=== PATIENT | female | born 1935 | race Caucasian/White ===

== ENCOUNTER 2018-03-26 13:42 | Inpatient (IN) | payer OTHER ==
[~2018-03-26] VITALS: Ht 170.2 cm; Wt 69.9 kg
[~2018-03-26 13:42] MED LIST: ALTACE10 MG; DICLOFENAC SODI50 MG PO; DILTIAZEM 24HR240 MG; GLUCOTROL10 MG; JANUVIA100 MG; METFORMIN HCL750 MG; SYNTHROID88 MCG; ZOCOR20 MG
[2018-03-26] MEDS ORDERED: JANUVIA100 MG (14:11)
[2018-03-26] MEDS ORDERED: TUSSI-PRES LIQ118 ML (14:12)
== END 2018-03-30 16:41 | disposition home or self-care (01) | DRG 202 ==
LOC: ER 13:42 → SURH 21:32
PROC: 3E0F7GC Introduction of Other Therapeutic Substance into Respiratory Tract, Via Natural or Artificial Opening (ICD-10-PCS; principal; 2018-03-26)
PROC: 4A033R1 Measurement of Arterial Saturation, Peripheral, Percutaneous Approach (ICD-10-PCS; 2018-03-26)
DX: J45.41 Moderate persistent asthma with (acute) exacerbation (principal); J44.1 Chronic obstructive pulmonary disease with (acute) exacerbation; J44.0 Chronic obstructive pulmonary disease with (acute) lower respiratory infection; E11.65 Type 2 diabetes mellitus with hyperglycemia; I10 Essential (primary) hypertension; E03.8 Other specified hypothyroidism; E78.00 Pure hypercholesterolemia, unspecified; J20.9 Acute bronchitis, unspecified; B34.9 Viral infection, unspecified

== ENCOUNTER 2019-09-28 11:46 | Emergency (ER) | payer OTHER ==
[~2019-09-28] VITALS: Ht 170.2 cm; Wt 77.1 kg
[~2019-09-28 11:46] MED LIST changes: +TUSSI-PRES LIQ118 ML
[2019-09-28] MEDS ORDERED: EFFEXOR XR37.5 MG PO (12:10)
[2019-09-28] MEDS ORDERED: METFORMIN HCL1000 M2 PO (12:10)
[2019-09-28] MEDS ORDERED: SINGULAIR10 MG PO (12:10)
[2019-09-28] MEDS ORDERED: ASPIR 8181 MG PO (12:10)
== END 2019-09-28 16:09 | disposition home or self-care (01) ==
LOC: ER 11:46
DX: J45.998 Other asthma (principal)

== ENCOUNTER → 2019-11-18 | Emergency (ER) | payer OTHER ==
[~2019-11-18] VITALS: Ht 170.2 cm; Wt 77.1 kg
[~2019-11-18] MED LIST changes: +ALTACE10 MG PO; +ASA81 MG PO; +ASPIR 8181 MG PO; +DILTIAZEM 24HR240 MG PO; +EFFEXOR XR37.5 MG PO; +JANUVIA100 MG PO; +METFORMIN HCL1000 M2; +METFORMIN HCL1000 M2 PO; +SINGULAIR10 MG PO; +SYNTHROID100 MCG PO; +ZOCOR20 MG PO
== END | disposition left against medical advice (07) ==
LOC: ER 11:09
DX: Z53.20 Procedure and treatment not carried out because of patient's decision for unspecified reasons (principal)